=== PATIENT | male | born 1965 | race Caucasian/White ===

== ENCOUNTER → 2019-11-07 | Outpatient (CLI) | payer BC ==
[2019-11-07 10:43] LABS: ALBUMIN 4.5 g/dL (3.5-5.0); ALKALINE PHOSPHATASE 70 U/L (38-126); ANION GAP 9 (5-19); ASPARTATE AMINO TRANSFERASE 50 U/L (17-59); BILIRUBIN,TOTAL 0.9 mg/dL (0.2-1.3); BLOOD UREA NITROGEN 19 mg/dL (7-20); CALCIUM 9.3 mg/dL (8.4-10.2); CARBON DIOXIDE 24 mmol/L (22-30); CHLORIDE 104 mmol/L (98-107); CHOLESTEROL 176.79 mg/dL (0-200); GLUCOSE 252 mg/dL (75-110); POTASSIUM 4.4 mmol/L (3.6-5.0); TOTAL PROTEIN 7.3 g/dL (6.3-8.2); TRIGLYCERIDES 154 mg/dL (<150)
[2019-11-07 10:53] LABS: DIRECT LDL 125 mg/dL (<100)
[2019-11-07 11:16] LABS: VLDL CHOLESTEROL 30.8 mg/dL (10-31)
[2019-11-08 15:36] LABS: CREATININE URINE 62.9 mg/dL (Not Estab.)
[2019-11-09 14:27] LABS: MICROALBUMIN URINE <3.0 ug/mL (Not Estab.)
== END ==
LOC: OD 08:43
PROVIDERS: ATTEND Family Medicine
DX: E11.9 Type 2 diabetes mellitus without complications (principal); E03.9 Hypothyroidism, unspecified; Z12.5 Encounter for screening for malignant neoplasm of prostate
CPT/HCPCS: 36415; 80053; 80061; 82043; 82570; 83036; 84153; 84443

== ENCOUNTER → 2019-12-22 | Outpatient (CLI) | payer BC | LOC: OD 12:08 | PROVIDERS: ATTEND Family Medicine | DX: E05.80 Other thyrotoxicosis without thyrotoxic crisis or storm (principal) | CPT/HCPCS: 36415; 84443 ==